=== PATIENT | male | born 1965 | race Caucasian/White ===

== ENCOUNTER → 2017-11-01 | Emergency (ER) | payer OTHER ==
[~2017-11-01] VITALS: Ht 170.2 cm; Wt 102.5 kg
[~2017-11-01] MED LIST: LOTREL 10/40 MG1 CAP
== END | disposition home or self-care (01) ==
LOC: ER 19:38
DX: H66.91 Otitis media, unspecified, right ear (principal)

== ENCOUNTER 2020-06-20 05:59 | Emergency (ER) | payer OTHER ==
[~2020-06-20] VITALS: Ht 160 cm; Wt 102.1 kg
[2020-06-20] MEDS ORDERED: MEDROLPACK PO (15:16)
[2020-06-20] MEDS ORDERED: AMOX1TAB5 PO (15:16)
[2020-06-20] MEDS ORDERED: KETO10TA2 PO (15:16)
== END 2020-06-20 15:24 | disposition home or self-care (01) ==
LOC: ER 05:59
DX: H60.12 Cellulitis of left external ear (principal); J32.2 Chronic ethmoidal sinusitis; J32.0 Chronic maxillary sinusitis; J32.1 Chronic frontal sinusitis; Z03.818 Encounter for observation for suspected exposure to other biological agents ruled out

== ENCOUNTER → 2021-07-16 | Emergency (ER) | payer OTHER ==
[~2021-07-16] MED LIST changes: +AMOX1TAB5 PO; +KETO10TA2 PO; +MEDROLPACK PO
== END | disposition left against medical advice (07) ==
LOC: ER 09:27
DX: Z53.21 Procedure and treatment not carried out due to patient leaving prior to being seen by health care provider (principal)

== ENCOUNTER 2023-09-16 07:39 | Emergency (ER) | payer OTHER ==
[~2023-09-16] VITALS: Ht 170.2 cm; Wt 113.4 kg
[2023-09-16] MEDS ORDERED: VAZALORE81 MG (07:50)
[2023-09-16 09:37] LABS: HEMATOCRIT 43.9 % (39.0-48.0); MEAN CELL VOLUME 87.5 fL (80.0-100.00); MEAN CORPUSCULAR HEMOGLOBIN 29.8 pg (27.00-32.0); MEAN CORPUSCULAR HGB CONC 34.1 g/dl (32.0-36.0); PLATELET COUNT 250 K/uL (150-450); RED BLOOD COUNT 5.02 M/uL (4.00-6.00); RED CELL DISTRIBUTION WIDTH 13.9 % (11.5-14.5)
[2023-09-16 10:08] LABS: INR 1.04; PARTIAL THROMBOPLASTIN TIME 31.1 SECONDS (22.0-34.0); PROTHROMBIN TIME 10.9 SECONDS (9.0-11.5)
[2023-09-16 10:37] LABS: CALCIUM 9.3 mg/dL (8.5-10.1); CREATININE SERUM 0.81 mg/dL (0.70-1.30); GFR 98.57; POTASSIUM 3.98 mEq/L (3.5-5.1)
== END 2023-09-16 18:19 | disposition home or self-care (01) ==
LOC: ER 07:40
PROVIDERS: Emergency Medicine
DX: R07.9 Chest pain, unspecified (principal); I10 Essential (primary) hypertension